=== PATIENT | male | born 1965 | race Caucasian/White ===

== ENCOUNTER → 2019-05-30 08:08 | Outpatient (BNVA) | payer MEDICARE, SELFPAY | PROVIDERS: Family Provider Family Medicine; Visit Provider Nurse Practitioner Psychiatric/Mental Health | DX: F20.5 Residual schizophrenia (principal) | CPT/HCPCS: 99213 ==

== ENCOUNTER → 2019-11-14 08:20 | Outpatient (BNVA) | payer MEDICARE, SELFPAY | PROVIDERS: Family Provider Family Medicine; Visit Provider Nurse Practitioner Psychiatric/Mental Health | DX: F20.5 Residual schizophrenia (principal) | CPT/HCPCS: 99213 ==

== ENCOUNTER → 2020-05-07 07:30 | Outpatient (BNVA) | payer MEDICARE, SELFPAY | PROVIDERS: Family Provider Family Medicine; Visit Provider Nurse Practitioner Psychiatric/Mental Health | DX: F20.5 Residual schizophrenia (principal) | CPT/HCPCS: 99214 ==

== ENCOUNTER → 2020-10-29 07:25 | Outpatient (BNVA) | payer MEDICARE, SELFPAY | PROVIDERS: Family Provider Family Medicine; Visit Provider Nurse Practitioner Psychiatric/Mental Health | DX: F20.5 Residual schizophrenia (principal) | CPT/HCPCS: 99214 ==

== ENCOUNTER → 2021-04-22 07:33 | Outpatient (BNVA) | payer MEDICARE, SELFPAY | PROVIDERS: Family Provider Family Medicine; Visit Provider Nurse Practitioner Psychiatric/Mental Health | DX: F20.5 Residual schizophrenia (principal) | CPT/HCPCS: 99214 ==

== ENCOUNTER → 2022-09-11 07:53 | Outpatient (BNVA) | payer MEDICARE, SELFPAY | PROVIDERS: Family Provider Family Medicine; Visit Provider Podiatrist Foot & Ankle Surgery | DX: M76.62 Achilles tendinitis, left leg (principal); M76.61 Achilles tendinitis, right leg; M21.6X1 Other acquired deformities of right foot; M21.6X2 Other acquired deformities of left foot; M72.2 Plantar fascial fibromatosis | CPT/HCPCS: 99204 ==

== ENCOUNTER → 2022-10-02 08:21 | Outpatient (BNVA) | payer MEDICARE, SELFPAY | PROVIDERS: Family Provider Family Medicine; Visit Provider Podiatrist Foot & Ankle Surgery | DX: M72.2 Plantar fascial fibromatosis; M21.6X9 Other acquired deformities of unspecified foot; M76.62 Achilles tendinitis, left leg; M76.61 Achilles tendinitis, right leg | CPT/HCPCS: 99213 ==

== ENCOUNTER → 2023-12-24 13:55 | Outpatient (BNVA) | payer MEDICARE, SELFPAY | PROVIDERS: Family Provider Family Medicine; PCP Family Medicine; Visit Provider Podiatrist Foot & Ankle Surgery | DX: M76.60 Achilles tendinitis, unspecified leg (principal); M21.6X9 Other acquired deformities of unspecified foot; M79.672 Pain in left foot; M79.671 Pain in right foot | CPT/HCPCS: 73610; 73630; 99213 ==